=== PATIENT | male | born 2000 ===

== ENCOUNTER → 2021-04-01 09:16 | Outpatient (CLI) | payer OTHER, SELFPAY ==
--- NOTE | 2021-04-01 | DI.MRI.S_ITS ---
PROCEDURE: MR PELIS WO/W CON INDICATIONS: Other specified disorders of peritoneum TECHNIQUE: Coronal HASTE, sagittal T2 FSE, axial T1 FSE, axial and coronal nonbreath-hold T2 FSE. Axial dynamic VIBE during administration of contrast. Post-contrast axial and coronal VIBE/2-D FLASH with fat saturation from the iliac crests to the symphysis. Optional diffusion weighted imaging and ADC may be performed. COMPARISON: [facility], , CT ABDOMEN/PELVIS WITH CONTRAST, 05/09/2020, 20:02. [facility], , MRI PELVIS W/WO CONTRAST, 05/26/2020, 16:00. FINDINGS: Image quality: Excellent. Bowel and peritoneum: No pathologic free pelvic fluid. Inferior colon and small bowel loops are normal in caliber. Genitourinary system: Bladder wall is normal in thickness. Distal ureters are non distended. The prostate is normal in size. At the superior lateral border of the seminal vesicle on the right again noted is a small ovoid sharply demarcated structure all showing no change in size or morphology from the prior MRI 05/26/20. This also is equivalent to the finding on CT scan performed 05/09/20. No new nodule has developed within the peritoneal space. No contrast enhancement is noted at this structure. Nodes and vessels: No pathologic pelvic or inguinal adenopathy by size criteria. Iliac vessels are normal in caliber. Soft tissues: No inguinal hernias. Bones: Marrow is normal in overall signal. IMPRESSION: Stable appearance of a ovoid nonenhancing structure containing fluid signal, with reference to the earlier CT and MR scanning from April of last year. 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 Dictated by: Uri Centeno M.D. on 04/01/2021 at 15:19 Approved by: Uri Centeno M.D. on 04/01/2021 at 15:23
== END ==
PROVIDERS: Referring Provider Student in an Organized Health Care Education/Training Program; Visit Provider Student in an Organized Health Care Education/Training Program
DX: K66.8 Other specified disorders of peritoneum (principal)
CPT/HCPCS: 72197